=== PATIENT | female | born 1995 | race American Indian/Alaskan Native ===

== ENCOUNTER 2016-10-29 06:41 | Emergency (ER) | payer MEDICAID ==
[2016-10-29 07:42] LABS: Basophils % (Auto) 0.2 % (0.0-1.8); Eosinophils % (Auto) 0.1 % (0.0-4.3); Hematocrit 35.2 % (30.3-42.9); Hemoglobin 11.4 gm/dl (10.1-14.3); Mean Corpuscular HGB Conc 32 % (30-34); Mean Corpuscular Hemoglobin 27 pg (28-32); Mean Corpuscular Volume 82 fl (79-97); Platelet Count 200 K/mm3 (140-440); Red Cell Distribution Width 14.7 % (13.2-15.2); White Blood Count 15.9 K/mm3 (4.5-11.0)
[2016-10-29 07:50] LABS: Anion Gap 18 mmol/L; Blood Urea Nitrogen 7 mg/dL (7-17); Calcium 8.5 mg/dL (8.4-10.2); Carbon Dioxide 23 mmol/L (22-30); Chloride 96.1 mmol/L (98-107); Glucose 106 mg/dL (65-100); Potassium 3.5 mmol/L (3.6-5.0); Sodium 134 mmol/L (137-145)
[2016-10-29] MEDS ORDERED: TYLENOL PO ONE (10:27)
[2016-10-29] MEDS ORDERED: AMOXICILLIN ORAL LIQD PO ONE (10:29)
--- NOTE | 2016-10-29 10:29 | Emergency Department Report ---
HPI - General Chief Complaint: Neck Pain/Injury Time Seen by Provider: 10/29/16 09:58 - HPI HPI: This is a 21-year-old Afro-Niuean female who presents to the emergency department with a 2 to three-day history of grossly worsening throat pain that currently she feels is a 10 out of 10 in intensity. While patient presents with a low-grade fever she does not really complain of any fever or chills. Patient is able to swallow but has pain with doing so. She has not taken anything for her discomfort prior to presentation. Patient says that she is here because her "thyroid is swollen." She has a primary care doctor through a urgent care. Recent travel or sick contacts at home. She does say that she has some past medical history regarding her thyroid but cannot tell me what it is. ED Past Medical Hx - Past Medical History Previous Medical History?: Yes Additional medical history: Thyroid - Surgical History Past Surgical History?: No - Social History Smoking Status: Former Smoker Substance Use Type: None - Medications Home Medications: Home Medications Medication Instructions Recorded Confirmed Last Taken Type Amoxicillin [Amoxicillin 400 MG/5 8 ml PO Q8H #240 ml 10/29/16 Unknown Rx ML] ED Review of Systems ROS: Stated complaint: THYROID PAIN Other details as noted in HPI Comment: All other systems reviewed and negative Constitutional: denies: chills, weakness Eyes: denies: eye pain, eye discharge, vision change ENT: throat pain. denies: ear pain Respiratory: denies: cough, shortness of breath, wheezing Cardiovascular: denies: chest pain, palpitations Gastrointestinal: denies: abdominal pain, nausea, diarrhea Genitourinary: denies: urgency, dysuria, discharge Musculoskeletal: denies: back pain, joint swelling, arthralgia Skin: denies: rash, lesions Neurological: denies: headache, weakness, paresthesias Physical Exam - Physical Exam Vital Signs: Vital Signs 10/29/16 06:45 Temperature 100.7 F H Pulse Rate 110 H Respiratory 20 Rate Blood Pressure 120/78 O2 Sat by Pulse 100 Oximetry Physical Exam: GENERAL: The patient is well-developed well-nourished. HEENT: Normocephalic. Atraumatic. Extraocular motions are intact. Patient has moist mucous membranes. Pupils equal reactive to light bilaterally. Patient has mild lateral tonsillar hypertrophy, erythema, and right-sided tonsillar exudates. No drooling or trismus. NECK: Supple. Bilateral tender but mobile submandibular lymphadenopathy. CHEST/LUNGS: Clear to auscultation. There is no respiratory distress noted. HEART/CARDIOVASCULAR: Regular. There is no tachycardia. There is no gallop rub or murmur. ABDOMEN: Abdomen is soft, nontender. Patient has normal bowel sounds. There is no abdominal distention. SKIN: There is no rash. There is no edema. There is no diaphoresis. NEURO: The patient is awake, alert, and oriented. The patient is cooperative. The patient has no focal neurologic deficits. The patient has normal speech. MUSCULOSKELETAL: There is no tenderness or deformity. There is no limitation range of motion. There is no evidence of acute injury. ED Course Vital Signs 10/29/16 06:45 Temperature 100.7 F H Pulse Rate 110 H Respiratory 20 Rate Blood Pressure 120/78 O2 Sat by Pulse 100 Oximetry ED Medical Decision Making - Lab Data Result diagrams: 10/29/16 07:20 10/29/16 07:20 - Medical Decision Making This is a 21-year-old female presents to the emergency department with a few days of what she thinks is thyroid pain but instead appears to be strep pharyngitis. Patient was given amoxicillin to start her treatment and she'll be given a prescription for this for 10 days. Patient had her fever treated with Tylenol and Toradol. This patient was accidentally given 5 mg of IM Valium that was prescribed for another patient within the emergency department. As soon as this became known, I spoke with the patient in great detail about the medication and was very forthcoming about the error in administration. It has been 30-40 minutes since the patient got the medication and she is awake and alert and does not appear to have any side effects or current sedation. The plan was going to be to watch the patient for a while to make sure that there were no side effects or bad outcomes from his medication but the patient is insistent that she needs to leave. However she does have someone to drive her from the emergency department to the [facility]. She has no intention of driving, working, being responsible for children, or adding any other alcohol or sedating substances. The patient understands that if there is any concern or any problems that she is to return to the emergency department immediately. The patient also knows to follow up with her primary care doctor regarding the strep pharyngitis and to take the antibiotics as prescribed. - Differential Diagnosis strep pharyngitis, mono, thyroiditis, lymphangitis Critical Care Time: No Critical care attestation.: If time is entered above; I have spent that time in minutes in the direct care of this critically ill patient, excluding procedure time. ED Disposition Clinical Impression: Strep pharyngitis, Throat pain Disposition: DISCHARGED TO HOME OR SELFCARE Is pt being admited?: No Does the pt Need Aspirin: No Condition: Stable Instructions: Strep Throat (ED) Additional Instructions: Please follow-up with your primary care doctor in the next few days. Return to the emergency department with any worsening of your symptoms or any acute distress. You can use Tylenol every 4 hours and Motrin every 6 hours, using weight-based dosing, as needed for fever and/or discomfort. Take the antibiotics as prescribed. Prescriptions: Amoxicillin [Amoxicillin 400 MG/5 ML] 8 ml PO Q8H #240 ml Referrals: PRIMARY CARE [Primary Care Provider] - 3-5 Days Time of Disposition: 11:16
[2016-10-29] MEDS ORDERED: TORADOL IM ONE (10:30)
[2016-10-29 11:35] VITALS: BP 128/75
== END 2016-10-29 11:31 | disposition home or self-care (01) ==
LOC: ED 06:41
DX: J02.0 Streptococcal pharyngitis (principal); R07.0 Pain in throat; Z87.891 Personal history of nicotine dependence
CPT/HCPCS: 36415; 80048; 84443; 85025; 96372; 99283; J1885

== ENCOUNTER 2018-02-26 11:12 | Inpatient (IN) | payer MEDICAID ==
[2018-02-26] MEDS ORDERED: MINERAL OIL PO PRN (11:56)
[2018-02-26] MEDS ORDERED: ZOFRAN IV PRN ×2 (11:56→23:36)
[2018-02-26] MEDS ORDERED: SUBLIMAZE IV PRN (11:56)
[2018-02-26] MEDS ORDERED: ePHEDrine SULFATE IV PRN ×2 (11:56→20:25)
[2018-02-26] MEDS ORDERED: BRETHINE SUB-Q PRN (11:56)
[2018-02-26] MEDS ORDERED: STADOL IV PRN (11:56)
[2018-02-26] MEDS ORDERED: NARCAN 0.4 MG/1 ML IV PRN (11:56)
[2018-02-26] MEDS ORDERED: BRETHINE IVP PRN (11:56)
[2018-02-26] MEDS ORDERED: XYLOCAINE 2% INFILTRATI ONE (11:56)
[2018-02-26] MEDS ORDERED: PITOCin/NS 20 UNIT/1000ML DRIP 20 UNITS/1,000 ML BAG IV SCH ×2 (12:00→23:36)
[2018-02-26] MEDS ORDERED: PITOCin/NS 30 UNIT/500ML 30 UNITS/500 ML BAG IV SCH (12:00)
[2018-02-26] MEDS: LACTATED RINGERS 1,000 ML IV SCH ×2 (12:30→20:08)
[2018-02-26 13:32] LABS: Hematocrit 28.2 % (30.3-42.9); Hemoglobin 9.2 gm/dl (10.1-14.3); Mean Corpuscular Hemoglobin 23 pg (28-32); Mean Corpuscular Volume 72 fl (79-97); Red Blood Count 3.92 M/mm3 (3.65-5.03)
[2018-02-26 13:33] LABS: Mean Corpuscular HGB Conc 32 % (30-34); Mean Platelet Volume 9.4 fl (6-12); Platelet Count 229 K/mm3 (140-440); Red Cell Distribution Width 17.7 % (13.2-15.2)
--- NOTE | 2018-02-26 17:04 | History and Physical Report ---
History of Present Illness Date of examination: 02/26/18 Date of admission: 02/26/18 11:13 Chief complaint: rupture of membranes History of present illness: Pt is a 22 year old -Northern Irish female primigravida ANEUDY 02/19/18 at 41w0d who presents to triage with gross rupture of membranes since 9:30 am this morning. She denies vaginal bleeding. She has had care at [facility] complicated by chlamydia treated with negative test of cure, trichomonas with treatment twice and a negative test of cure, anemia prescribed iron three times daily though pt non-compliant, and refusal to complete 1 hr glucose tolerance test with hemoglobin A1C of 5.4. She is GBS negative. Past History Past Medical History: hematologic disorders (anemia- noncompliant with prescribed iron therapy) Past Surgical History: no surgical history INSTRUMENTATION FITTER History: chlamydia (treated with negative test of cure), trichomonas ( treated with negative test of cure), other (h/o condyloma accuminatum) Family/Genetic History: diabetes, heart disease, hypertension Social history: no significant social history - Obstetrical History Expected Date of Delivery: 02/19/18 Actual Gestation: 41 Week(s) 0 Day(s) : 1 Medications and Allergies Allergies Allergy/AdvReac Type Severity Reaction Status Date / Time No Known Allergies Allergy Unverified 10/29/16 06:53 Home Medications Medication Instructions Recorded Confirmed Last Taken Type No Known Home Medications [No 02/26/18 02/26/18 Unknown History Reported Home Medications] Active Meds: Active Medications Butorphanol Tartrate (Stadol) 2 mg IV Q2H PRN PRN Reason: Pain , Severe (7-10) Last Admin: 02/26/18 16:00 Dose: 2 mg Ephedrine Sulfate (Ephedrine Sulfate) 10 mg IV Q2M PRN PRN Reason: Hypotension Fentanyl (Sublimaze) 100 mcg IV Q2H PRN PRN Reason: Labor Pain Lactated Ringer's (Lactated Ringers) 1,000 mls @ 125 mls/hr IV DIRECT HERNAN Last Admin: 02/26/18 12:30 Dose: 125 mls/hr Oxytocin/Sodium Chloride (Pitocin/Ns 20 Unit/1000ml Drip) 20 units in 1,000 mls @ 125 mls/hr IV DIRECT HERNAN Oxytocin/Sodium Chloride (Pitocin/Ns 30 Unit/500ml) 30 units in 500 mls @ 4 mls /hr IV TITR HERNAN; Protocol Last Titration: 02/26/18 15:45 Dose: 8 ml/hr, 8 mls/hr Mineral Oil (Mineral Oil) 30 ml PO QHS PRN PRN Reason: Constipation Naloxone HCl (Narcan 0.4 Mg/1 Ml) 0.1 mg IV Q2MIN PRN PRN Reason: Res Rate </= 8 or 02 SAT < 92% Ondansetron HCl (Zofran) 4 mg IV Q8H PRN PRN Reason: Nausea And Vomiting Terbutaline Sulfate (Brethine) 0.25 mg SUB-Q ONCE PRN PRN Reason: Hyperstimulation/Hypertonicity Terbutaline Sulfate (Brethine) 0.25 mg IVP ONCE PRN PRN Reason: Hyperstimulation/Hypertonicity Review of Systems All systems: negative - Physical Exam Breasts: Positive: deferred Cardiovascular: Regular rate Lungs: Positive: Clear to auscultation Abdomen: Positive: soft (gravid) Uterus: Positive: enlarged (gravid) Extremities: Positive: normal - Obstetrical FHR: auscultation normal Uterine Contraction Monitor Mode: External Cervical Dilatation: 0.5 (per RN) Uterine Contraction Pattern: Irregular Uterine Tone Measurement Phase: Resting Uterine Contraction Intensity: Mild Results Result Diagrams: 02/26/18 12:30 Abnormal lab results 02/26/18 Range/Units 12:30 Hgb 9.2 L (10.1-14.3) gm/dl Hct 28.2 L (30.3-42.9) % MCV 72 L (79-97) fl MCH 23 L (28-32) pg RDW 17.7 H (13.2-15.2) % All other labs normal. Assessment and Plan A: IUP at 41w0d Premature rupture of membranes Anemia GBS negative P: Admit to labor and delivery. Routine intrapartum care. Closely monitor maternal and status.
[2018-02-26] MEDS ORDERED: NARCAN 2 MG/2 ML IV PRN (20:25)
--- NOTE | 2018-02-26 20:27 | Anesthesia Consultation ---
Anesthesia Consult and Med Hx Date of service: 02/26/18 - Airway Anesthetic Teeth Evaluation: Good ROM Head & Neck: Adequate Mental/Hyoid Distance: Adequate Mallampati Class: Class II Intubation Access Assessment: Good - Pulmonary Exam CTA: Yes - Cardiac Exam Cardiac Exam: No Murmur - Pre-Operative Health Status ASA Pre-Surgery Classification: ASA2 Proposed Anesthetic Plan: Epidural - Pulmonary Hx Asthma: No COPD: No Hx Pneumonia: No - Cardiovascular System Hx Hypertension: No - Central Nervous System Hx Seizures: No Hx Psychiatric Problems: No - Endocrine Hx Renal Disease: No Hx End Stage Renal Disease: No Hx Hypothyroidism: No Hx Hyperthyroidism: No - Hematic Hx Anemia: No Hx Sickle Cell Disease: No - Other Systems Hx Alcohol Use: No
[2018-02-26] MEDS ORDERED: fentaNYL-BUPIV 2 MCG/ML-0.125% 200 MCG/100 ML BAG EPIDURAL SCH (21:00)
--- NOTE | 2018-02-26 22:44 | Procedure Note ---
OB Delivery Note - Delivery Date of Delivery: 02/26/18 Surgeon: ANTONIETA LOBATO Estimated blood loss: 300cc - Vaginal Delivery presentation: vertex Delivery position: OA Intrapartum events: PROM->1hr before delivery, meconium, mult.variable deceleratio Delivery induction: oxytocin Delivery augmentation: pitocin Delivery monitor: external FHT, external uterine Route of delivery: Delivery placenta: spontaneous Delivery cord: nuchal cord, 3 umbilical vessels Episiotomy: none Delivery laceration: 2nd degree, other (midline periurethral ) Delivery repair: vicryl Anesthesia: epidural Delivery comments: Pt progressed to complete/complete/+2 and pushed to deliver a viable female over intact perineum via under epidural anesthesia. Head delivered easily. Nuchal cord x 1 doubly clamped and cut. Shoulders and body delivered easily. placed on maternal abdomen for bonding then handed to NICU staff for meconium. Placenta delivered spontaneously (3VC, intact). Vagina and perineum explored. Midline periurethral and second degree perineal laceration repaired in standard fashion. EBL 300 mL. - Infant A at 1 minute: 8 at 5 minutes: 9 Gender: Female (3126g (6 lb 14 oz) @ 2138 pm)
[2018-02-26] MEDS ORDERED: SODIUM CHLORIDE FLUSH SYRINGE 10 ML IV NR (23:36)
[2018-02-26] MEDS ORDERED: TYLENOL PO PRN (23:36)
[2018-02-26] MEDS ORDERED: PHENERGAN PR PRN (23:36)
[2018-02-26] MEDS ORDERED: TUCKS PAD TP PRN (23:36)
[2018-02-26] MEDS ORDERED: MILK OF MAGNESIA PO PRN (23:36)
[2018-02-26] MEDS ORDERED: LANSINOH TP PRN ×2 (23:36)
[2018-02-26] MEDS ORDERED: DULCOLAX PR PRN (23:36)
[2018-02-26] MEDS ORDERED: DERMOPLAST TP PRN (23:36)
[2018-02-26] MEDS ORDERED: BENADRYL PO PRN (23:36)
[2018-02-26] MEDS ORDERED: NORCO 5/325 PO PRN (23:36)
[2018-02-26] MEDS ORDERED: PHENERGAN PO PRN (23:36)
[2018-02-27] MEDS ORDERED: MOTRIN PO SCH ×2 (01:00)
[2018-02-27] MEDS ORDERED: MOTRIN PO ONE (02:15)
[2018-02-27] MEDS ORDERED: BOOSTRIX IM ONE ×2 (06:00→22:00)
[2018-02-27] MEDS ORDERED: M-M-R II VACCINE SUB-Q ONE (06:00)
--- NOTE | 2018-02-27 08:25 | Progress Note ---
Assessment and Plan PPD1 s/p routine PP oroders continue routine orders Subjective - Subjective Date of service: 02/27/18 Principal diagnosis: s/p Patient reports: appetite normal, voiding normally, pain well controlled, flatus , ambulating normally : doing well Objective - Vital Signs Latest vital signs: Vital Signs Temp Pulse Resp BP BP Pulse Ox 02/27/18 02:39 16 02/27/18 01:30 98.3 F 73 20 124/63 97 02/26/18 23:25 71 127/65 02/26/18 23:11 74 120/64 02/26/18 23:02 99.1 F 20 02/26/18 22:41 86 126/68 02/26/18 22:26 79 130/59 02/26/18 22:11 84 134/65 02/26/18 22:02 98.3 F 20 02/26/18 21:52 81 132/63 02/26/18 21:43 107 H 143/74 100 02/26/18 21:38 95 H 100 02/26/18 21:33 81 100 02/26/18 21:30 88 142/75 91 02/26/18 21:28 107 H 100 02/26/18 21:23 75 99 02/26/18 21:18 78 100 02/26/18 21:13 100 H 100 02/26/18 21:12 77 126/62 02/26/18 21:10 69 133/64 76 L 02/26/18 21:08 73 132/74 02/26/18 21:07 67 100 02/26/18 21:06 71 141/82 02/26/18 21:04 74 141/82 02/26/18 21:02 77 143/87 100 02/26/18 21:00 75 139/77 02/26/18 20:57 87 100 02/26/18 20:54 50 L 77 L 02/26/18 20:52 71 124/72 100 02/26/18 20:50 75 131/86 02/26/18 20:48 72 128/75 02/26/18 20:47 75 100 02/26/18 20:46 77 126/72 02/26/18 20:44 140/79 02/26/18 20:42 89 125/74 98 06/03/18 20:40 83 124/63 06/03/18 20:38 75 129/63 02/26/18 20:37 79 134/80 99 02/26/18 20:36 68 73 L 02/26/18 20:34 79 128/70 02/26/18 20:32 75 129/71 100 02/26/18 20:30 73 131/74 02/26/18 20:29 76 72 L 02/26/18 20:28 71 132/75 02/26/18 20:27 71 98 02/26/18 20:26 77 139/86 02/26/18 20:24 82 94 02/26/18 20:22 82 99 02/26/18 20:17 84 99 02/26/18 20:15 83 68 L 02/26/18 20:12 79 99 02/26/18 20:07 84 100 02/26/18 20:05 103 H 94 02/26/18 20:02 90 99 02/26/18 19:57 77 100 02/26/18 19:52 80 100 02/26/18 19:47 87 100 02/26/18 19:46 77 88 02/26/18 19:42 71 99 02/26/18 19:40 91 H 75 L 02/26/18 19:37 81 99 02/26/18 19:34 80 86 02/26/18 19:32 75 98 02/26/18 19:29 98.5 F 89 20 119/76 02/26/18 19:27 85 99 Intake and Output 02/26/18 02/27/18 02/27/18 23:59 07:59 15:59 Intake Total 906.25 240 Output Total 475 600 Balance 431.25 -360 Intake: IV 906.25 Lactated Ringers 1,000 ml 906.25 @ 125 mls/hr IV DIRECT HERNAN Rx#:[id number] Oral 240 Output: Urine 475 600 Indwelling Catheter 475 600 Other: Total, Intake Amount 240 Total, Output Amount 400 600 # Voids Indwelling Catheter 1 1 Estimated Blood Loss 300 - Exam Breasts: Present: normal Cardiovascular: Present: Regular rate, Normal S1 Lungs: Present: Clear to auscultation, Normal air movement Abdomen: Present: normal appearance, soft, normal bowel sounds. Absent: distention, tenderness, guarding Vulva: both: normal Uterus: Present: normal, fundal height below umbilicus. Absent: bogginess, tenderness Extremities: Present: normal Deep Tendon Reflex Grade: Normal +2 - Labs Labs: Abnormal lab results 02/26/18 Range/Units 12:30 Hgb 9.2 L (10.1-14.3) gm/dl Hct 28.2 L (30.3-42.9) % MCV 72 L (79-97) fl MCH 23 L (28-32) pg RDW 17.7 H (13.2-15.2) %
--- NOTE | 2018-02-27 08:43 | Discharge Summary ---
Providers - Providers Date of Admission: 02/26/18 11:13 Date of discharge: 02/28/18 Attending physician: ANTONIETA LOBATO 02/26/18 23:36 Consult to Quality Tester [CONS] Routine Reason For Exam: assistance with , SNS Primary care physician: ANTONIETA LOBATO Hospitalization Reason for admission: active labor Delivery: Episiotomy: none Laceration: none Incision: normal, dry, intact Other procedures: none complications: none Condition at discharge: Good Disposition: DC-01 TO HOME OR SELFCARE Plan - Discharge Medications Prescriptions: Ferrous Sulfate 325 mg PO BID #30 tablet. Ibuprofen [Motrin] 600 mg PO Q8H PRN #30 tablet PRN Reason: Pain oxyCODONE /ACETAMINOPHEN [Percocet 5/325] 1 tab PO Q6HR PRN #30 tablet PRN Reason: Pain - Provider Discharge Summary Activity: routine, no sex for 6 weeks Diet: routine Instructions: routine Additional instructions: [] Smoking cessation referral if applicable(refer to patient education folder for contact #) [] Refer to [facility]'s [facility] Booklet Call your doctor immediately for: * Fever > 100.5 * Heavy vaginal bleeding ( >1 pad per hour) * Severe persistent headache * Shortness of breath * Reddened, hot, painful area to leg or breast * Drainage or odor from incision. * Keep incision clean and dry at all times and follow doctor's instructions regarding bathing/showering - Follow up plan Follow up: ANTONIETA LOBATO MD [Primary Care Provider] - 03/28/18
[2018-02-27] MEDS ORDERED: FEOSOL PO SCH (10:00)
[2018-02-27 11:06] LABS: Hematocrit 26.7 % (30.3-42.9); Hemoglobin 8.5 gm/dl (10.1-14.3)
[2018-02-27] MEDS: MOTRIN PO SCH ×3 (12:00→23:36)
[2018-02-28] MEDS: MOTRIN PO SCH (06:49)
[2018-02-28 17:16] VITALS: BP 129/84
== END 2018-02-28 17:00 | disposition home or self-care (01) | DRG 774 ==
LOC: TRG 11:12 → LD 11:13 → TRG 11:13 → OB 02-27 00:07
PROVIDERS: ADMIT Obstetrics & Gynecology; ATTEND Obstetrics & Gynecology
PROC: 10E0XZZ Delivery of Products of Conception, External Approach (ICD-10-PCS; principal; 2018-02-26)
PROC: 0KQM0ZZ Repair Perineum Muscle, Open Approach (ICD-10-PCS; 2018-02-26)
PROC: 3E033VJ Introduction of Other Hormone into Peripheral Vein, Percutaneous Approach (ICD-10-PCS; 2018-02-26)
PROC: 3E0R3BZ Introduction of Anesthetic Agent into Spinal Canal, Percutaneous Approach (ICD-10-PCS; 2018-02-26)
PROC: 00HU33Z Insertion of Infusion Device into Spinal Canal, Percutaneous Approach (ICD-10-PCS; 2018-02-26)
PROC: 3E0234Z Introduction of Serum, Toxoid and Vaccine into Muscle, Percutaneous Approach (ICD-10-PCS; 2018-02-27)
DX: O42.02 Full-term premature rupture of membranes, onset of labor within 24 hours of rupture (principal); O98.32 Other infections with a predominantly sexual mode of transmission complicating childbirth; O99.02 Anemia complicating childbirth; D64.9 Anemia, unspecified; O77.0 Labor and delivery complicated by meconium in amniotic fluid; O76 Abnormality in fetal heart rate and rhythm complicating labor and delivery; O69.81X0 Labor and delivery complicated by cord around neck, without compression, not applicable or unspecified; O70.1 Second degree perineal laceration during delivery; Z23 Encounter for immunization; Z3A.41 41 weeks gestation of pregnancy; Z37.0 Single live birth; A59.9 Trichomoniasis, unspecified; O98.82 Other maternal infectious and parasitic diseases complicating childbirth; Z91.14 Patient's other noncompliance with medication regimen
CPT/HCPCS: 36415; 85014; 85018; 85027; 86592; 86850; 86900; 86901; 90471; 90715; 99211; G0463; J0595; J2405; J2590; J3010; J7120

== ENCOUNTER 2020-10-14 17:48 | Emergency (ER) | payer MEDICAID ==
[2020-10-14 18:01] VITALS: BP 119/77
--- NOTE | 2020-10-14 18:40 | Emergency Department Report ---
ED General Adult HPI - General Chief complaint: Nausea/Vomiting/Diarrhea Stated complaint: ; NAUSEA Source: patient Mode of arrival: Ambulatory Limitations: No Limitations - History of Present Illness Initial comments: pt is a 25 y/o aaf who presents for n/v x 2, LMP 09/09/2021, pt states pos home test, however now emesis appears yellow /green in color, pt denies fever or chills, denies dysuria , frequency, or urgency, denies vaginal discharge, abd pain described as 4/10 aching and cramping, last po intake 3 days ago. - Related Data Previous Rx's Medication Instructions Recorded Last Taken Type Ferrous Sulfate 325 mg PO BID #30 tablet. 02/27/18 Unknown Rx Ibuprofen [Motrin] 600 mg PO Q8H PRN #30 tablet 02/27/18 Unknown Rx oxyCODONE /ACETAMINOPHEN [Percocet 1 tab PO Q6HR PRN #30 tablet 02/27/18 Unknown Rx 5/325] Doxylamine Succinate/Vit B6 1 each PO TID PRN #30 tablet. 10/14/20 Unknown Rx [Micaela Arango 10-10 mg Tablet] Allergies Allergy/AdvReac Type Severity Reaction Status Date / Time No Known Allergies Allergy Unverified 10/29/16 06:53 ED Review of Systems ROS: Stated complaint: ; NAUSEA Other details as noted in HPI Constitutional: denies: chills, fever Eyes: as per HPI ENT: denies: ear pain, throat pain Respiratory: denies: cough, shortness of breath, wheezing Cardiovascular: denies: chest pain, palpitations Endocrine: no symptoms reported Gastrointestinal: abdominal pain, nausea, vomiting. denies: diarrhea, constipation, melena Genitourinary: denies: urgency, dysuria, frequency, hematuria, discharge Musculoskeletal: back pain Skin: denies: rash, lesions Neurological: as per HPI. denies: headache Psychiatric: as per HPI Hematological/Lymphatic: denies: easy bleeding, easy bruising ED Past Medical Hx - Past Medical History Previous Medical History?: Yes Hx Hypertension: No Hx Congestive Heart Failure: No Hx Diabetes: No Hx Deep Vein Thrombosis: No Hx Renal Disease: No Hx Sickle Cell Disease: No Hx Seizures: No Hx Asthma: No Hx COPD: No Hx HIV: No Additional medical history: Thyroid - Social History Smoking Status: Never Smoker - Medications Home Medications: Home Medications Medication Instructions Recorded Confirmed Last Taken Type Ferrous Sulfate 325 mg PO BID #30 tablet. 02/27/18 Unknown Rx Ibuprofen [Motrin] 600 mg PO Q8H PRN #30 tablet 02/27/18 Unknown Rx oxyCODONE /ACETAMINOPHEN [Percocet 1 tab PO Q6HR PRN #30 tablet 02/27/18 Unknown Rx 5/325] Doxylamine Succinate/Vit B6 1 each PO TID PRN #30 tablet. 10/14/20 Unknown Rx [Micaela Arango 10-10 mg Tablet] ED Physical Exam - General Limitations: No Limitations General appearance: alert, in no apparent distress - Head Head exam: Present: atraumatic, normocephalic - Eye Eye exam: Present: normal appearance, EOMI Pupils: Present: normal accommodation - ENT ENT exam: Present: normal exam - Neck Neck exam: Present: normal inspection, full ROM. Absent: tenderness - Respiratory Respiratory exam: Present: normal lung sounds bilaterally. Absent: wheezes, stridor - Cardiovascular Cardiovascular Exam: Present: regular rate, normal rhythm, normal heart sounds - GI/Abdominal GI/Abdominal exam: Present: soft, normal bowel sounds. Absent: distended, tenderness, guarding, rebound, rigid, bruit, hernia - Rectal Rectal exam: Present: deferred - Extremities Exam Extremities exam: Present: normal inspection - Back Exam Back exam: Present: normal inspection, full ROM. Absent: tenderness, CVA tenderness (R), CVA tenderness (L) - Neurological Exam Neurological exam: Present: alert, oriented X3, CN II-XII intact, normal gait - Psychiatric Psychiatric exam: Present: normal affect, normal mood - Skin Skin exam: Present: warm, dry, intact, normal color. Absent: rash ED Course Vital Signs 10/14/20 18:00 Temperature 98 F Pulse Rate 84 Respiratory 16 Rate Blood Pressure 119/77 [Right] O2 Sat by Pulse 100 Oximetry ED Medical Decision Making - Lab Data Result diagrams: 10/14/20 18:43 10/14/20 18:43 Labs 10/14/20 10/14/20 10/14/20 18:43 18:43 22:18 WBC 7.8 RBC 4.32 Hgb 10.7 Hct 33.4 MCV 77 L MCH 25 L MCHC 32 RDW 17.2 H Plt Count 300 Lymph % (Auto) 29.3 [place] % (Auto) 9.4 H Eos % (Auto) 1.8 Baso % (Auto) 0.4 Lymph # (Auto) 2.3 [place] # (Auto) 0.7 Eos # (Auto) 0.1 Baso # (Auto) 0.0 Seg Neutrophils % 59.1 Seg Neutrophils # 4.6 Sodium 139 Potassium 4.5 Chloride 105.0 Carbon Dioxide 21 L Anion Gap 18 BUN 8 Creatinine 0.5 L Estimated GFR > 60 BUN/Creatinine Ratio 16 Glucose 89 Calcium 8.9 Total Bilirubin 0.30 AST 25 ALT 11 Alkaline Phosphatase 84 Total Protein 7.5 Albumin 4.0 Albumin/Globulin Ratio 1.1 Lipase 32 Urine Color Yellow Urine Turbidity Slightly-cloudy Urine pH 5.0 Ur Specific [place] 1.032 H Urine Protein 30 mg/dl Urine Glucose (UA) Neg Urine Ketones Neg Urine Blood Neg Urine Nitrite Neg Urine Bilirubin Neg Urine Urobilinogen 2.0 Ur Leukocyte Esterase Neg Urine WBC (Auto) 4.0 Urine RBC (Auto) 1.0 U Epithel Cells (Auto) 20.0 H Urine Mucus 3+ Urine HCG, Qual Positive A - Medical Decision Making hcg is positive, there is no vaginal discharge, no vaginal bleeding, there is no abdominal pain, n/v is resolved, plan: follow up with OBGYN in 2-3 days, micaela, po prn n/v, hydrate as directed and agreed , pt dc'd to home in stable condition at this time. Critical care attestation.: If time is entered above; I have spent that time in minutes in the direct care of this critically ill patient, excluding procedure time. ED Disposition Clinical Impression: Positive test Disposition: DC-01 TO HOME OR SELFCARE Is pt being admited?: No Does the pt Need Aspirin: No Condition: Stable Instructions: Care Prescriptions: Doxylamine Succinate/Vit B6 [Micaela Arango 10-10 mg Tablet] 1 each PO TID PRN #30 tablet.dr [place] Reason: Nausea And Vomiting Referrals: PRIMARY CARE, [Primary Care Provider] - 3-5 Days [facility] [Provider Group] - 3-5 Days Forms: Work/School Release Form(ED) Time of Disposition: 23:11
[2020-10-14 19:28] LABS: Basophils % (Auto) 0.4 % (0.0-1.8); Eosinophils # (Auto) 0.1 K/mm3 (0.0-0.4); Eosinophils % (Auto) 1.8 % (0.0-4.3); Hematocrit 33.4 % (30.3-42.9); Hemoglobin 10.7 gm/dl (10.1-14.3); Lymphocytes # (Auto) 2.3 K/mm3 (1.2-5.4); Lymphocytes % (Auto) 29.3 % (13.4-35.0); Mean Corpuscular HGB Conc 32 % (30-34); Mean Corpuscular Volume 77 fl (79-97); Monocytes # (Auto) 0.7 K/mm3 (0.0-0.8); Monocytes % (Auto) 9.4 % (0.0-7.3); Platelet Count 300 K/mm3 (140-440); Red Blood Count 4.32 M/mm3 (3.65-5.03); Red Cell Distribution Width 17.2 % (13.2-15.2)
[2020-10-14 19:41] LABS: Alanine Aminotransferase 11 units/L (7-56); Blood Urea Nitrogen 8 mg/dL (7-17); Calcium 8.9 mg/dL (8.4-10.2); Hemolysis Index 128
[2020-10-14 19:50] LABS: BUN/Creatinine Ratio 16
[2020-10-14 22:52] LABS: Bilirubin,Urine NEG (Negative); Blood,Urine NEG (Negative); Color,Urine Yellow (Yellow); Mucus,Urine 3+ /HPF
[2020-10-14 22:59] LABS: HCG Qualitative,Urine Positive (Negative)
== END 2020-10-14 23:11 | disposition home or self-care (01) ==
LOC: ED 17:48
DX: O26.891 Other specified pregnancy related conditions, first trimester (principal); R11.0 Nausea; Z32.01 Encounter for pregnancy test, result positive; Z79.899 Other long term (current) drug therapy
CPT/HCPCS: 36415; 80053; 81001; 81025; 83690; 85025; 99283

== ENCOUNTER → 2022-02-25 | Emergency (ER) | payer MEDICAID ==
[2022-02-26 04:04] VITALS: BP 114/74
== END ==
LOC: ED 23:37
DX: Z04.1 Encounter for examination and observation following transport accident (principal); Z53.21 Procedure and treatment not carried out due to patient leaving prior to being seen by health care provider